=== PATIENT | male | born 1985 | race Caucasian/White ===

== ENCOUNTER → 2021-12-08 | Outpatient (REF) | LOC: M RAD 10:53 | PROVIDERS: ATTEND Internal Medicine | DX: R52 Pain, unspecified (principal) ==

== ENCOUNTER → 2023-07-24 | Outpatient (CLI) | payer OTHER | LOC: M SLEEP 20:00 | PROVIDERS: ATTEND Internal Medicine | DX: G47.33 Obstructive sleep apnea (adult) (pediatric) (principal) ==